=== PATIENT | male | born 1955 | race Caucasian/White ===

== ENCOUNTER 2021-03-18 07:36 | Inpatient (IN) | payer OTHER ==
[~2021-03-18] VITALS: Ht 172.7 cm; Wt 95.3 kg
[~2021-03-18 07:36] MED LIST: ASPI81CH49 PO; ATOR20TA PO; BENAZEPRIL PO; HYDROCHLOTHIAZIDE PO; METF-370 PO
[2021-03-18] MEDS ORDERED: AZITHROMYCIN 250 MG TAB PO ONE (10:30)
[2021-03-18] MEDS ORDERED: cefTRIAXone W LIDOCAINE 1 GM IM IM ONE (10:30)
[2021-03-18 10:43] LABS: Basophils # (auto) 0 10 ^3/uL (0-0.2); Basophils % (auto) 0.3 % (0.0-2.0); Eosinophils # (auto) 0.1 10 ^3/uL (0-0.8); Eosinophils % (auto) 0.7 % (0.0-7.0); Hematocrit 49.3 % (41.0-53.0); Hemoglobin 17.2 g/dL (13.5-17.5); Lymphocytes # (auto) 1.5 10 ^3/uL (0.4-5.4); Lymphocytes % (auto) 16.6 % (10.0-50.0); Mean Corpuscular Hgb Conc. 34.9 g/dL (32.0-36.0); Monocytes # (auto) 1.1 10 ^3/uL (0-1.3); Neutrophils # (auto) 6.1 10 ^3/uL (1.6-8.6); Neutrophils % (auto) 69.4 % (37.0-80.0); Nucleated Red Blood Cells % 0.1 %; Red Blood Cells 5.73 10^6/uL (4.5-5.90); Red Cell Distribution Width 12.6 % (11.8-14.3); White Blood Cell 8.7 10^3/uL (4.4-10.8)
[2021-03-18 10:46] LABS: Calcium 9.5 mg/dL (8.5-10.1)
[2021-03-18 10:52] LABS: Albumin 3.6 g/dL (3.4-5.0); BUN/Creatinine Ratio 24.2; Bilirubin, Total 0.8 mg/dL (0.2-1.0); Total Protein 7.6 g/dL (6.4-8.2)
[2021-03-18 10:59] LABS: Potassium 5.7 mmol/L (3.5-5.1)
[2021-03-18] MEDS ORDERED: SODIUM ZIRCONIUM CYCL 10 GM PAK PO ONE ×2 (11:00→13:30)
[2021-03-18] MEDS ORDERED: SODIUM BICARBONATE 8.4% INJ 50ML SYRINGE IV ONE ×2 (11:00→13:30)
[2021-03-18] MEDS ORDERED: CALCIUM GLUC 1,000mg/50ml-NS 50 ML IV ONE (11:00)
[2021-03-18] MEDS ORDERED: ALBUTEROL SULF 2.5 MG/0.5ML(0.5%) NEB SOLN NEB ONE ×2 (11:00→13:30)
[2021-03-18] MEDS ORDERED: CALCIUM CHL 100MG/ML 1,000 MG in D5W 5% 100 ML IV ONE ×2 (13:30→16:00)
[2021-03-18] MEDS ORDERED: AZITHROMYCIN 500MG/ 250ML 250 ML IV ONE (13:30)
[2021-03-18] MEDS ORDERED: cefTRIAXone 1GM/50ML D5W 50 ML IV ONE (13:30)
[2021-03-18] MEDS ORDERED: FUROSEMIDE 40 MG/4 ML VIAL IV ONE (13:30)
[2021-03-18] MEDS ORDERED: MORPHINE SULFATE INJECTION 2 MG/ML SYRG IV PRN ×3 (13:30→16:45)
[2021-03-18] MEDS ORDERED: InsuLIN REG 1unit/0.01ml Soln (100units/ml) IV ONE (13:30)
[2021-03-18] MEDS ORDERED: DEXTROSE (50%) 50ML SYRG IV ONE (13:30)
[2021-03-18] MEDS ORDERED: NITROGLYCERIN 0.4 MG SL TAB SL PRN ×2 (13:30→16:45)
[2021-03-18] MEDS ORDERED: METF-372 PO (15:59)
[2021-03-18] MEDS ORDERED: BENA40TA8 PO (15:59)
[2021-03-18] MEDS ORDERED: TERB250T66 PO (15:59)
[2021-03-18] MEDS ORDERED: GLIM-6 PO (15:59)
[2021-03-18] MEDS ORDERED: HYDR25TA5 PO (15:59)
[2021-03-18] MEDS ORDERED: LOVA10TA54 PO (15:59)
[2021-03-18] MEDS ORDERED: B-CO1TAB8 PO (16:01)
[2021-03-18] MEDS ORDERED: COEN100C37 PO (16:01)
[2021-03-18] MEDS ORDERED: ASCO500T11 PO (16:01)
[2021-03-18] MEDS ORDERED: LORazepam 0.5 MG TAB PO PRN (16:45)
[2021-03-18] MEDS ORDERED: ONDANSETRON HCL 4 MG/2 ML VIAL IV PRN (16:45)
[2021-03-18] MEDS ORDERED: HYDROcodone-ACET 5/325MG TAB PO PRN (16:45)
[2021-03-18] MEDS ORDERED: DEXTROSE (50%) 50ML SYRG IV PRN (16:45)
[2021-03-18] MEDS ORDERED: ALUM & MAG HYDROX-SIMETH LIQ(MAALOX) 30 ML PO PRN (16:45)
[2021-03-18] MEDS ORDERED: ACETAMINOPHEN 325 MG TAB PO PRN (16:45)
[2021-03-18] MEDS: SODIUM CHLORIDE 0.9% 1,000 ML IV SCH (16:45)
[2021-03-18] MEDS: DOXYCYCLINE 100MG/250ML 250 ML IV SCH (16:45)
[2021-03-18] MEDS ORDERED: DOCUSATE SOD 100 MG CAP PO PRN (16:45)
[2021-03-18] MEDS: ACCU-CHEK COMFORT CURVE STRIP VI SCH ×2 (17:00→22:00)
[2021-03-18] MEDS: InsuLIN REG 1unit/0.01ml Soln (100units/ml) SC SCH ×2 (17:00→22:00)
[2021-03-18 19:51] LABS: Cholesterol 123 mg/dL (< 200)
[2021-03-18 19:53] LABS: HDL Cholesterol 32 mg/dL (40-59); LDL Cholesterol 76 mg/dL (< 100); Triglycerides 119 mg/dL (< 150)
[2021-03-18] MEDS ORDERED: ALBUMIN 5% 250 ML IV ONE (21:00)
[2021-03-18] MEDS ORDERED: SODIUM ZIRCONIUM CYCL 10 GM PAK PO SCH (22:00)
[2021-03-18] MEDS: ATORVASTATIN 20 MG TAB PO SCH (23:23)
[2021-03-18] MEDS: ENOXAPARIN SOD 40 MG/0.4 ML SYRINGE SC SCH (23:24)
[2021-03-19] MEDS ORDERED: PHENYLEPHRINE IV 250 ML IV ONE (01:50)
[2021-03-19] MEDS: PHENYLEPHRINE IV 250 ML IV SCH ×3 (02:00→18:25)
[2021-03-19] MEDS: DOXYCYCLINE 100MG/250ML 250 ML IV SCH ×2 (05:15→16:57)
[2021-03-19] MEDS: InsuLIN REG 1unit/0.01ml Soln (100units/ml) SC SCH ×4 (06:35→23:16)
[2021-03-19] MEDS: ACCU-CHEK COMFORT CURVE STRIP VI SCH ×4 (06:35→23:16)
[2021-03-19 08:38] LABS: Eosinophils # (auto) 0.1 10 ^3/uL (0-0.8); Eosinophils % (auto) 1.2 % (0.0-7.0); Hemoglobin 14.8 g/dL (13.5-17.5); Red Cell Distribution Width 12.8 % (11.8-14.3)
[2021-03-19 08:45] LABS: Basophils # (auto) 0 10 ^3/uL (0-0.2); Basophils % (auto) 0.2 % (0.0-2.0); Hematocrit 42.4 % (41.0-53.0); Lymphocytes # (auto) 1.8 10 ^3/uL (0.4-5.4); Lymphocytes % (auto) 18.5 % (10.0-50.0); Mean Corpuscular Hemoglobin 30.5 pg (28.0-32.0); Mean Corpuscular Volume 87.1 fL (80.0-100.0); Monocytes # (auto) 1.5 10 ^3/uL (0-1.3); Monocytes % (auto) 15.5 % (0.0-12.0); Neutrophils # (auto) 6.3 10 ^3/uL (1.6-8.6); Neutrophils % (auto) 64.6 % (37.0-80.0); Nucleated Red Blood Cells % 0.1 %; Red Blood Cells 4.87 10^6/uL (4.5-5.90); White Blood Cell 9.8 10^3/uL (4.4-10.8)
[2021-03-19 08:55] LABS: INR 1.05 (0.9-1.15); Partial Thromboplastin Time 29.4 sec (23.6-33.0)
[2021-03-19 08:57] LABS: Albumin 3.1 g/dL (3.4-5.0); Calcium 8.7 mg/dL (8.5-10.1); Magnesium 2.9 mg/dL (1.6-2.6); Potassium 4.4 mmol/L (3.5-5.1)
[2021-03-19 09:03] LABS: BUN/Creatinine Ratio 26.3; Bilirubin, Total 0.8 mg/dL (0.2-1.0); Phosphorus 3.4 mg/dL (2.5-4.90); Total Protein 6.9 g/dL (6.4-8.2); Uric Acid 9.1 mg/dL (3.5-7.2)
[2021-03-19] MEDS: SODIUM CHLORIDE 0.9% 1,000 ML IV SCH (09:57)
[2021-03-19] MEDS: ASPirin 81 mg TAB PO SCH (09:58)
[2021-03-19] MEDS ORDERED: ENOXAPARIN SOD 40 MG/0.4 ML SYRINGE SC SCH (10:00)
[2021-03-19] MEDS ORDERED: SODIUM CHLORIDE 0.9% 1,000 ML IV ONE (11:30)
[2021-03-19 11:32] LABS: Urine Bacteria NONE SEEN /hpf (None Seen); Urine Blood Negative /uL (Negative); Urine Hyaline Cast FEW /lpf (0 - 2); Urine Specific Gravity 1.011 (1.001-1.035); Urine WBC <1 /hpf (0 - 3)
[2021-03-19 11:59] LABS: Amphetamine Screen, Urine NEGATIVE (NEGATIVE); Barbiturate Scree,Urine NEGATIVE (NEGATIVE); Benzodiazephine Screen, Urine NEGATIVE (NEGATIVE); Cannabinoid Screen, Urine NEGATIVE (NEGATIVE); Cocaine Screen, Urine NEGATIVE (NEGATIVE); Opiate Scree,Urine NEGATIVE (NEGATIVE); Phencyclidine Screen, Urine NEGATIVE (NEGATIVE)
[2021-03-19] MEDS: ATORVASTATIN 20 MG TAB PO SCH (23:18)
[2021-03-19] MEDS: ENOXAPARIN SOD 40 MG/0.4 ML SYRINGE SC SCH (23:19)
[2021-03-20] MEDS ORDERED: SODIUM CHLORIDE 0.9% 1,000 ML IV ONE (01:00)
[2021-03-20] MEDS: SODIUM CHLORIDE 0.9% 1,000 ML IV SCH ×2 (02:03→13:12)
[2021-03-20] MEDS: AZITHROMYCIN 500MG/ 250ML 250 ML IV SCH ×2 (04:58→09:37)
[2021-03-20] MEDS: ACCU-CHEK COMFORT CURVE STRIP VI SCH ×3 (06:42→17:07)
[2021-03-20] MEDS: InsuLIN REG 1unit/0.01ml Soln (100units/ml) SC SCH ×3 (06:48→17:00)
[2021-03-20] MEDS: ASPirin 81 mg TAB PO SCH (09:37)
[2021-03-20] MEDS ORDERED: AZITHROMYCIN 500MG/ 250ML 250 ML IV SCH (10:00)
[2021-03-20 10:23] LABS: Basophils # (auto) 0 10 ^3/uL (0-0.2); Basophils % (auto) 0.5 % (0.0-2.0); Eosinophils # (auto) 0.2 10 ^3/uL (0-0.8); Eosinophils % (auto) 3.2 % (0.0-7.0); Hematocrit 39.7 % (41.0-53.0); Hemoglobin 13.2 g/dL (13.5-17.5); Lymphocytes # (auto) 1.4 10 ^3/uL (0.4-5.4); Lymphocytes % (auto) 25.1 % (10.0-50.0); Mean Corpuscular Hgb Conc. 33.3 g/dL (32.0-36.0); Mean Corpuscular Volume 87.1 fL (80.0-100.0); Monocytes # (auto) 0.8 10 ^3/uL (0-1.3); Monocytes % (auto) 15.2 % (0.0-12.0); Neutrophils # (auto) 3.1 10 ^3/uL (1.6-8.6); Nucleated Red Blood Cells % 0.1 %; Red Blood Cells 4.56 10^6/uL (4.5-5.90); Red Cell Distribution Width 12.8 % (11.8-14.3); White Blood Cell 5.5 10^3/uL (4.4-10.8)
[2021-03-20 11:04] LABS: Calcium 8.3 mg/dL (8.5-10.1); Magnesium 2.3 mg/dL (1.6-2.6); Potassium 5.1 mmol/L (3.5-5.1)
[2021-03-20 11:10] LABS: BUN/Creatinine Ratio 23.6
[2021-03-20] MEDS ORDERED: ASPI1TAB91 PO (15:38)
[2021-03-20] MEDS ORDERED: ALBUAER3 IN (15:38)
[2021-03-20] MEDS ORDERED: DOXY-346 PO (15:38)
[2021-03-20] MEDS ORDERED: AMLO-489 PO (15:38)
[2021-03-20 18:30] VITALS: BP 137/93
== END 2021-03-20 18:28 | disposition home health service (06) | DRG 871 ==
LOC: ER 07:36 → TELE 13:25
PROVIDERS: ADMIT Hospitalist; ATTEND Internal Medicine
DX: A41.89 Other specified sepsis (principal); R65.21 Severe sepsis with septic shock; N17.0 Acute kidney failure with tubular necrosis; J12.82 Pneumonia due to coronavirus disease 2019; U07.1 COVID-19; I16.9 Hypertensive crisis, unspecified; B49 Unspecified mycosis; I24.8 Other forms of acute ischemic heart disease; E87.5 Hyperkalemia; N18.31 Chronic kidney disease, stage 3a; E66.01 Morbid (severe) obesity due to excess calories; E11.22 Type 2 diabetes mellitus with diabetic chronic kidney disease; E78.5 Hyperlipidemia, unspecified; I12.9 Hypertensive chronic kidney disease with stage 1 through stage 4 chronic kidney disease, or unspecified chronic kidney disease; K44.9 Diaphragmatic hernia without obstruction or gangrene; N20.0 Calculus of kidney; Z79.82 Long term (current) use of aspirin; Z68.31 Body mass index [BMI] 31.0-31.9, adult; Z79.899 Other long term (current) drug therapy
CPT/HCPCS: 36415; 74018; 74176; 80048; 80053; 80061; 80307; 81001; 82306; 82728; 82962; 83036; 83690; 83735; 83880; 84100; 84132; 84443; 84484; 84550; 85025; 85379; 85610; 85730; 86141; 87040; 87086; 87426; 93005; 93306; 93970; 94640; 94644; 96365; 96375; 99291; G0378; J0696; J1815; J3490; J7060